=== PATIENT | female | born 1975 | race African-American/Black ===

== ENCOUNTER 2021-09-29 04:48 | Emergency (ER) | payer SELFPAY ==
[~2021-09-29] VITALS: Ht 160 cm; Wt 69.0 kg
[2021-09-29 04:52] VITALS: BP 179/107
== END 2021-09-29 09:33 | disposition left against medical advice (07) ==
LOC: ER 04:48
DX: R06.02 Shortness of breath (principal); J45.909 Unspecified asthma, uncomplicated; F17.290 Nicotine dependence, other tobacco product, uncomplicated; I10 Essential (primary) hypertension
CPT/HCPCS: 93005; 99283; 99406